=== PATIENT | male | born 1980 | race Caucasian/White ===

== ENCOUNTER 2016-04-03 21:51 | Emergency (ER) | payer OTHER, MEDICAID ==
[~2016-04-03] VITALS: Ht 162.6 cm; Wt 80.0 kg
[2016-04-03 22:03] VITALS: BP 128/73; PULSE 79; RESP 18; TEMP 97.9; O2SAT 98
[2016-04-03 22:59] LABS: AUTOMATED NEUTROPHIL # 7.7 TH/MM3 (1.8-7.7); BASOPHIL % 0.2 % (0.0-2.0); EOSINOPHIL # 0.1 TH/MM3 (0-0.4); EOSINOPHIL % 0.5 % (0.0-4.0); HEMATOCRIT 43.8 % (39.0-51.0); HEMO FLAGS DIFF FINAL; LYMPHOCYTE # 1.8 TH/MM3 (1.0-4.8); MEAN CELL VOLUME 86.8 FL (80.0-100.0); MEAN CORPUSCULAR HEMOGLOBIN 30.4 PG (27.0-34.0); MEAN CORPUSCULAR HGB CONC 35.1 % (32.0-36.0); MONO % 7.6 % (0.0-8.0); NEUT % 74.7 % (16.0-70.0); PLATELET COUNT 237 TH/MM3 (150-450); RED BLOOD COUNT 5.05 MIL/MM3 (4.50-5.90); RED CELL DISTRIBUTION WIDTH 13.1 % (11.6-17.2); WHITE BLOOD COUNT 10.3 TH/MM3 (4.0-11.0)
[2016-04-03 23:08] LABS: AMPHETAMINE, URINE NEG (NEG); BARBITURATES, URINE NEG (NEG); COCAINE, URINE NEG (NEG)
[2016-04-03 23:14] LABS: ANION GAP 8 MEQ/L (5-15); BICARBONATE 25.9 MEQ/L (21.0-32.0); BLOOD UREA NITROGEN 13 MG/DL (7-18); CHLORIDE 106 MEQ/L (98-107); GLOMERULAR FILTRATION RATE 87 ML/MIN (>89); POTASSIUM 3.5 MEQ/L (3.5-5.1); SODIUM (NA) 140 MEQ/L (136-145)
--- NOTE | 2016-04-04 01:02 | PD ---
HPI Chief Complaint: Psychiatric Symptoms Time Seen by Provider: 00:59 Travel History International Travel<30 days: No Contact w/Intl Traveler<30days: No Traveled to known affect area: No History of Present Illness HPI 35-year-old male presents to emergency department under [place] act by PD. The patient allegedly had made verbal statements and text messages of a suicidal nature. He allegedly has stated that he was going to kill his daughter and himself. According to him he is only been to his now for the last few weeks. She was getting jealous regarding social media postings. She had threatened to take his daughter back to [place] with her. He has stated that he would kill her and himself. He states that he had said this out of anger. He denies any active plan on self-harm. He denies any drugs, alcohol or tobacco. No recent illness. He denies any true suicidal homicidal ideation. PFSH Past Medical History Medical History: Denies Significant Hx Tetanus Vaccination: Unknown Influenza Vaccination: No Past Surgical History Surgical History: No Previous Surgery Social History Alcohol Use: Yes (OCCASIONAL ) Tobacco Use: No Substance Use: No Allergies-Medications (Allergen,Severity, Reaction): Coded Allergies: No Known Allergies (Unverified , 04/03/16) Reported Meds & Prescriptions Reported Meds & Active Scripts Active No Active Prescriptions or Reported Medications Review of Systems Except as stated in HPI: all other systems reviewed are Neg Physical Exam Narrative GENERAL: Well-nourished, well-developed patient. SKIN: Warm and dry. HEAD: Normocephalic and atraumatic. EYES: No scleral icterus. No injection or drainage. ENT: No nasal drainage noted. Mucous membranes pink. Airway patent. NECK: Supple, trachea midline. Moves head freely without obvious discomfort. CARDIOVASCULAR: Regular rate and rhythm without murmurs, gallops, or rubs. RESPIRATORY: Breath sounds equal bilaterally. No accessory muscle use. GASTROINTESTINAL: Abdomen soft, non-tender, nondistended. EXTREMITIES: No cyanosis or edema. BACK: Nontender without obvious deformity. No CVA tenderness. NEURO: Patient is alert and oriented. no sensorimotor deficits. Nonfocal. Normal speech. PSYCH: No delusions. No auditory or visual hallucinations. Data Data Last Documented VS Vital Signs Date Time Temp Pulse Resp B/P Pulse Ox O2 Delivery O2 Flow Rate FiO2 04/03/16 22:03 97.9 79 18 128/73 98 Orders Complete Blood Count With Diff (04/03/16 22:34) Basic Metabolic Panel (Bmp) (04/03/16 22:34) Drug Screen, Random Urine (04/03/16 22:34) Alcohol (Ethanol) (04/03/16 22:34) Psych Screen (04/03/16 22:34) Labs Laboratory Tests Test 04/03/16 22:40 White Blood Count 10.3 TH/MM3 Red Blood Count 5.05 MIL/MM3 Hemoglobin 15.4 GM/DL Hematocrit 43.8 % Mean Corpuscular Volume 86.8 FL Mean Corpuscular Hemoglobin 30.4 PG Mean Corpuscular Hemoglobin 35.1 % Concent Red Cell Distribution Width 13.1 % Platelet Count 237 TH/MM3 Mean Platelet Volume 8.6 FL Neutrophils (%) (Auto) 74.7 % Lymphocytes (%) (Auto) 17.0 % Monocytes (%) (Auto) 7.6 % Eosinophils (%) (Auto) 0.5 % Basophils (%) (Auto) 0.2 % Neutrophils # (Auto) 7.7 TH/MM3 Lymphocytes # (Auto) 1.8 TH/MM3 Monocytes # (Auto) 0.8 TH/MM3 Eosinophils # (Auto) 0.1 TH/MM3 Basophils # (Auto) 0.0 TH/MM3 CBC Comment DIFF FINAL Differential Comment Sodium Level 140 MEQ/L Potassium Level 3.5 MEQ/L Chloride Level 106 MEQ/L Carbon Dioxide Level 25.9 MEQ/L Anion Gap 8 MEQ/L Blood Urea Nitrogen 13 MG/DL Creatinine 0.97 MG/DL Estimat Glomerular Filtration 87 ML/MIN Rate Random Glucose 110 MG/DL Calcium Level 9.0 MG/DL Urine Opiates Screen NEG Urine Barbiturates Screen NEG Urine Amphetamines Screen NEG Urine Benzodiazepines Screen NEG Urine Cocaine Screen NEG Urine Cannabinoids Screen NEG Ethyl Alcohol Level LESS THAN 3 MG/DL MDM Medical Decision Making Medical Screen Exam Complete: Yes Emergency Medical Condition: Yes Medical Record Reviewed: Yes Interpretation(s) Laboratory Tests Test 04/03/16 22:40 White Blood Count 10.3 TH/MM3 Red Blood Count 5.05 MIL/MM3 Hemoglobin 15.4 GM/DL Hematocrit 43.8 % Mean Corpuscular Volume 86.8 FL Mean Corpuscular Hemoglobin 30.4 PG Mean Corpuscular Hemoglobin 35.1 % Concent Red Cell Distribution Width 13.1 % Platelet Count 237 TH/MM3 Mean Platelet Volume 8.6 FL Neutrophils (%) (Auto) 74.7 % Lymphocytes (%) (Auto) 17.0 % Monocytes (%) (Auto) 7.6 % Eosinophils (%) (Auto) 0.5 % Basophils (%) (Auto) 0.2 % Neutrophils # (Auto) 7.7 TH/MM3 Lymphocytes # (Auto) 1.8 TH/MM3 Monocytes # (Auto) 0.8 TH/MM3 Eosinophils # (Auto) 0.1 TH/MM3 Basophils # (Auto) 0.0 TH/MM3 CBC Comment DIFF FINAL Differential Comment Sodium Level 140 MEQ/L Potassium Level 3.5 MEQ/L Chloride Level 106 MEQ/L Carbon Dioxide Level 25.9 MEQ/L Anion Gap 8 MEQ/L Blood Urea Nitrogen 13 MG/DL Creatinine 0.97 MG/DL Estimat Glomerular Filtration 87 ML/MIN Rate Random Glucose 110 MG/DL Calcium Level 9.0 MG/DL Urine Opiates Screen NEG Urine Barbiturates Screen NEG Urine Amphetamines Screen NEG Urine Benzodiazepines Screen NEG Urine Cocaine Screen NEG Urine Cannabinoids Screen NEG Ethyl Alcohol Level LESS THAN 3 MG/DL Differential Diagnosis MDM: High Differential diagnoses: Schizophrenia, schizoaffective disorder, bipolar, anxiety, depression, adjustment reaction, mood disorder NOS, ODD, depressive disorder NOS, dementia, dementia with agitation, psychosis NOS, substance induced mood disorder, intermittent explosive disorder, Asperger syndrome, infection,electrolyte abnormality, malingering. Narrative Course Mental health screening discussed with the patient. Psychiatric screen ordered. The patient is medically cleared. This is adjustment reaction with depressed mood Diagnosis Primary Impression: Reaction, adjustment, with depressed mood, brief Scripts No Active Prescriptions or Reported Meds Condition: [place] Olivier Apr 04, 2016 01:02
--- NOTE | 2016-04-04 13:19 | PD ---
History of Present Illness Chief Complaint: Psychiatric Symptoms Time Seen by Provider: 13:00 Travel History International Travel<30 Days: No Contact w/Intl Traveler<30days: No Known affected area: No Legal Status Legal Status: [employer] History of Present Illness: History of Present Illness HPI 35-year-old male with no previous psychiatric history who presents to emergency department under [place] act initiated by PD. As per the documentation the patient allegedly had made verbal statements and sent text messages of a suicidal nature to his . As per the patient she was upset over social media postings and she had threatened to take his daughter back to [place] with her. Patient then sent the messages to her via text stating that he would kill her and himself if she were to leave the state .As per ed documentation " He states that he had said this out of anger. He denies any active plan on self-harm. He denies any drugs, alcohol or tobacco. No recent illness. He denies any true suicidal homicidal ideation. Patient seen main ED. Awake, alert and oriented, engaging and calm. As per staff reports he has not had any behavioral concerns. No evidence of any psychosis, no nathaniel. Not significantly depressed or anxious. Patient reports that he did not mean to say what he said and that he was angry at the time . " I would never hurt my daughter or my . I love her". I also have grown daughters in [place] that I love". He reports that he had been having problems with his prior to him taking the 3 mos old daughter. Initially the was agreeable to him taking the baby for a few days but later she changed her mind and called the police.He states that he was afraid of loosing contact with hias child if she moved but since being here he realizes that he cannot stop her from doing so. As per EMR there is no previous contact with this patient. Toxicology report is negative. Telephone call to at [phone] . She has no concerns if he were to be discharged. She corroborated that she had been agreeable with him taking the daughter when " I talked to him around 4 or 5 pm". She later called the police. She is in the process of filing a restraining order against him. PFSH Past Medical History Medical History: Denies Significant Hx Tetanus Vaccination: Unknown Influenza Vaccination: No Past Surgical History Surgical History: No Previous Surgery Psychiatric History Psychiatric History Hx Psychiatric Treatment: None reported History of Inpatient Treatment: No Guns or firearms in home: No Social History Born in [place]. x 1 [place]2 year. Has a 3 month old daughter. Works in construction. Hx Alcohol Use: Yes (OCCASIONAL ) Hx Tobacco Use: No Hx Substance Use: No Hx of Substance Use Treatment: No Family Psychiatric History None reported Allergies-Medications (Allergen,Severity, Reaction): Coded Allergies: No Known Allergies (Unverified , 04/03/16) Reported Meds & Prescriptions Reported Meds & Active Scripts Active No Active Prescriptions or Reported Medications Review of Systems Except as stated in HPI: all other systems reviewed are Neg Exam Alert: Yes Foster: Person (ox4) Mood: Calm Affect: Euthymic Speech: Clear, Logical Eye Contact: Normal Memory Intact: Comment (no impairment) Hallucinations: Other (deneis any) Delusions: No Suicidal: Ideation (denies any) Homicidal: Ideation (denies any) Insight/Judgement Fair. Not impaired MDM Medical Decision Making Medical Record Reviewed: Yes Assessment/Plan 35 year old male with no previous psychiatric history under a bA after he made statements indicating he would harm himself and his daughter if his moved away. Patient did not make any attempt at harming himself or anyone else. At this time he denies any intent of suicidal or homicidal ideation and acknowledges that he made such statement out of anger and to try and get a reaction out of his . He is future oriented at this point and is concerned over getting home as he has to get back to work tomorrow. Does not meet BA criteria at this time. Cleared for discharge from psychiatry Orders Complete Blood Count With Diff (04/03/16 22:34) Basic Metabolic Panel (Bmp) (04/03/16 22:34) Drug Screen, Random Urine (04/03/16 22:34) Alcohol (Ethanol) (04/03/16 22:34) Psych Screen (04/03/16 22:34) Diet Regular Basic (04/04/16 Breakfast) Diet Regular Basic (04/04/16 Lunch) Results Vital Signs Date Time Temp Pulse Resp B/P Pulse Ox O2 Delivery O2 Flow Rate FiO2 04/03/16 22:03 97.9 79 18 128/73 98 Laboratory Tests Test 04/03/16 22:40 White Blood Count 10.3 Red Blood Count 5.05 Hemoglobin 15.4 Hematocrit 43.8 Mean Corpuscular Volume 86.8 Mean Corpuscular Hemoglobin 30.4 Mean Corpuscular Hemoglobin 35.1 Concent Red Cell Distribution Width 13.1 Platelet Count 237 Mean Platelet Volume 8.6 Neutrophils (%) (Auto) 74.7 Lymphocytes (%) (Auto) 17.0 Monocytes (%) (Auto) 7.6 Eosinophils (%) (Auto) 0.5 Basophils (%) (Auto) 0.2 Neutrophils # (Auto) 7.7 Lymphocytes # (Auto) 1.8 Monocytes # (Auto) 0.8 Eosinophils # (Auto) 0.1 Basophils # (Auto) 0.0 CBC Comment DIFF FINAL Differential Comment Sodium Level 140 Potassium Level 3.5 Chloride Level 106 Carbon Dioxide Level 25.9 Anion Gap 8 Blood Urea Nitrogen 13 Creatinine 0.97 Estimat Glomerular Filtration 87 Rate Random Glucose 110 Calcium Level 9.0 Urine Opiates Screen NEG Urine Barbiturates Screen NEG Urine Amphetamines Screen NEG Urine Benzodiazepines Screen NEG Urine Cocaine Screen NEG Urine Cannabinoids Screen NEG Ethyl Alcohol Level LESS THAN 3 Diagnosis Primary Impression: Reaction, adjustment, with depressed mood, brief Psychiatrically Cleared: Yes Med/ Other Pt Specific Info: No Meds Exist/No RX given Prescriptions No Active Prescriptions or Reported Meds Disposition: 01 DISCHARGE HOME Condition: Stable McnairAntoinette Apr 04, 2016 13:19
== END 2016-04-04 14:46 | disposition home or self-care (01) ==
LOC: NEDAMB 21:51 → NEPD 04-04 14:46
DX: F43.21 Adjustment disorder with depressed mood (principal)
CPT/HCPCS: 80048; 80307; 80320; 85025; 99283